=== PATIENT | male | born 1980 | race Caucasian/White ===

== ENCOUNTER 2017-05-27 12:00 | Emergency (ER) | payer BC ==
[~2017-05-27] VITALS: Ht 167.6 cm; Wt 88.0 kg
[~2017-05-27 12:00] MED LIST: Z.0.NO CURRENT MEDS
[2017-05-27 12:14] VITALS: BP 129/92; PULSE 88; RESP 17; TEMP 97.7; O2SAT 98
[2017-05-27] MEDS ORDERED: REME15TA PO (13:07)
--- NOTE | 2017-05-27 13:29 | PD ---
HPI Chief Complaint: Musculoskeletal Complaint Time Seen by Provider: 13:18 Travel History International Travel<30 days: No Contact w/Intl Traveler<30days: No Traveled to known affect area: No History of Present Illness HPI 36-year-old male here for evaluation of left fifth finger pain 3-4 days. He denies injury. He is concerned it is trigger finger as one of his parents had similar symptoms. Symptoms severity is moderate. It is aggravated by flexion and extension of the finger and slightly relieved with rest. PFSH Past Medical History Medical History: Denies Significant Hx Diminished Hearing: No Tetanus Vaccination: < 5 Years Influenza Vaccination: No Past Surgical History Other Surgery: Yes (left foot) Social History Alcohol Use: Yes (denies) Tobacco Use: Yes (1PK PER DAY/SINCE AGE 14 states now occas. smoker) Substance Use: Yes Allergies-Medications (Allergen,Severity, Reaction): Coded Allergies: michele (Unverified Allergy, Intermediate, Anaphylaxis, 05/27/17) legumes (Verified Allergy, Intermediate, Anemia, 05/27/17) Reported Meds & Prescriptions Reported Meds & Active Scripts Active Reported Remeron (Mirtazapine) 15 Mg Tab 15 Mg PO HS Review of Systems Except as stated in HPI: all other systems reviewed are Neg Physical Exam Narrative GENERAL: Well-nourished, well-developed patient. SKIN: Focused skin assessment warm/dry. HEAD: Normocephalic. EYES: No scleral icterus. No injection or drainage. NECK: Supple, trachea midline. CARDIOVASCULAR: Regular rate and rhythm without murmurs, gallops, or rubs. RESPIRATORY: Breath sounds equal bilaterally. No accessory muscle use. MUSCULOSKELETAL: No cyanosis, or edema. Left hand: Tenderness to the entire portion of the fifth digit. No swelling, erythema, abrasions/wounds noted. Brisk cap refill. The finger is held in slight flexion. Reported normal sensation. Data Data Last Documented VS Vital Signs Date Time Temp Pulse Resp B/P (MAP) Pulse Ox O2 Delivery O2 Flow Rate FiO2 05/27/17 13:03 16 05/27/17 12:14 97.7 88 129/92 (104) 98 Orders Orders Splint Or Brace Apply/Monitor (05/27/17 13:23) Finger Splint (05/27/17 ) MDM Medical Decision Making Medical Screen Exam Complete: Yes Emergency Medical Condition: Yes Differential Diagnosis Finger sprain/strain, tendinitis, trigger finger, likely ruled out tenosynovitis Narrative Course 36-year-old male here for evaluation of left fifth finger pain and he denies injury. 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 On exam he has pain with full extension of the left fifth digit. There is no evidence of infection, dislocation, fracture. Patient will be finger splinted and instructed to follow -up with the hand surgeon appointment which he already reschedule. Diagnosis Primary Impression: Finger pain Qualified Codes: M79.645 - Pain in left finger(s) Referrals: Hand Surgeon Departure Forms: Tests/Procedures, Work Release Special Instructions: allow use of finger splint until follow up with hand surgeon Additional Instructions: Take [id number] Motrin 600 800 mg every 6-8 hours as needed for pain. Use the finger splint as directed. Keep your appointment with the hand surgeon this week. Disposition: 01 DISCHARGE HOME Condition: Stable Blanquita Gallego May 27, 2017 13:29
[2017-05-27] MEDS ORDERED: PERC5TAB12 PO (22:44)
== END 2017-05-27 13:48 | disposition home or self-care (01) ==
LOC: PHED 12:00 → PHEFT 13:48
DX: M79.645 Pain in left finger(s) (principal); Z72.0 Tobacco use; M79.642 Pain in left hand; S69.92XD Unspecified injury of left wrist, hand and finger(s), subsequent encounter; X58.XXXD Exposure to other specified factors, subsequent encounter
CPT/HCPCS: 29130

== ENCOUNTER 2017-05-27 20:46 | Emergency (ER) | payer BC ==
[~2017-05-27] VITALS: Ht 167.6 cm; Wt 86.6 kg
[~2017-05-27 20:46] MED LIST changes: +REME15TA PO
[2017-05-27 20:56] VITALS: BP 130/80; PULSE 100; RESP 18; TEMP 97.9; O2SAT 97
--- NOTE | 2017-05-27 21:29 | PD ---
HPI Chief Complaint: Pain: Acute or Chronic Time Seen by Provider: 21:19 Travel History International Travel<30 days: No Contact w/Intl Traveler<30days: No Traveled to known affect area: No History of Present Illness HPI This patient complains of pain in the left hand. Pain is severe. Started this weekend a day that he was hard labor with his hands. He wrapped his hands around metal wendy and was jamming in the ground repeatedly. Later that evening he had pain in the lateral aspect of the left hand. Duration is 4 days. Seen earlier today and the splint was applied. He took the splint off because it was hurting him and came back. No fever. No drainage no redness or warmth. He cannot fully flex or extend his left fifth finger. Movement of that finger causes him to shriek in pain. Pain is exacerbated with movement of the left fifth finger. No alleviating factors. PFSH Past Medical History Diminished Hearing: No Past Surgical History Other Surgery: Yes (left foot) Social History Alcohol Use: Yes (denies) Tobacco Use: Yes (1PK PER DAY/SINCE AGE 14 states now occas. smoker) Substance Use: Yes Allergies-Medications (Allergen,Severity, Reaction): Coded Allergies: michele (Unverified Allergy, Intermediate, Anaphylaxis, 05/27/17) legumes (Verified Allergy, Intermediate, Anemia, 05/27/17) Reported Meds & Prescriptions Reported Meds & Active Scripts Active Reported Remeron (Mirtazapine) 15 Mg Tab 15 Mg PO HS Review of Systems General / Constitutional: No: Fever Eyes: No: Visual changes HENT: No: Headaches Cardiovascular: No: Chest Pain or Discomfort Respiratory: No: Shortness of Breath Gastrointestinal: No: Abdominal Pain Genitourinary: No: Dysuria Musculoskeletal: Positive: Pain Skin: No Rash Neurologic: No: Weakness Psychiatric: No: Depression Endocrine: No: Polydipsia Hematologic/Lymphatic: No: Easy Bruising Physical Exam Narrative GENERAL: Well-nourished, well-developed patient with left hand pain . SKIN: Focused skin assessment reveals no rash and nodules. Skin is Warm and dry. HEAD: Atraumatic. Normocephalic. EYES: Pupils equal and round. No scleral icterus. No injection or drainage. ENT: No nasal bleeding or discharge. Mucous membranes pink and moist. NECK: Trachea midline. No JVD. CARDIOVASCULAR: Regular rate and rhythm. No murmur appreciated. RESPIRATORY: No accessory muscle use. Clear to auscultation. Breath sounds equal bilaterally. GASTROINTESTINAL: Abdomen soft, non-tender, nondistended. Hepatic and splenic margins not palpable. MUSCULOSKELETAL: Examination left hand reveals good flexion-extension of digits 1,2, and 3. There is some pain with flexion and extension of digits 4. If I move digit 5 he screams out in pain. There is some swelling and tenderness at the fifth metacarpal head . It's not warm or erythematous. No fluctuance or drainage. No clubbing. No cyanosis. No edema. NEUROLOGICAL: Awake and alert. No obvious cranial nerve deficits. Motor grossly within normal limits. Normal speech. PSYCHIATRIC: Appropriate mood and affect; insight and judgment normal. Data Data Last Documented VS Vital Signs Date Time Temp Pulse Resp B/P (MAP) Pulse Ox O2 Delivery O2 Flow Rate FiO2 05/27/17 20:56 97.9 100 18 130/80 (97) 97 Orders Orders Iv Access Insert/Monitor (05/27/17 21:19) Complete Blood Count With Diff (05/27/17 21:19) Basic Metabolic Panel (Bmp) (05/27/17 21:19) Prothrombin Time / Inr (Pt) (05/27/17 21:19) Act Partial Throm Time (Ptt) (05/27/17 21:19) Hand, Limited (2vws) (05/27/17 ) Ondansetron Inj (Zofran Inj) (05/27/17 21:30) Hydromorphone Pf Inj (Dilaudid Pf Inj) (05/27/17 21:45) Splint Or Brace Apply/Monitor (05/27/17 22:43) Labs Laboratory Tests Test 05/27/17 21:43 White Blood Count 8.9 TH/MM3 Red Blood Count 5.04 MIL/MM3 Hemoglobin 15.0 GM/DL Hematocrit 44.0 % Mean Corpuscular Volume 87.3 FL Mean Corpuscular Hemoglobin 29.8 PG Mean Corpuscular Hemoglobin Concent 34.2 % Red Cell Distribution Width 12.5 % Platelet Count 171 TH/MM3 Mean Platelet Volume 9.3 FL Neutrophils (%) (Auto) 71.9 % Lymphocytes (%) (Auto) 17.1 % Monocytes (%) (Auto) 7.2 % Eosinophils (%) (Auto) 2.9 % Basophils (%) (Auto) 0.9 % Neutrophils # (Auto) 6.4 TH/MM3 Lymphocytes # (Auto) 1.5 TH/MM3 Monocytes # (Auto) 0.6 TH/MM3 Eosinophils # (Auto) 0.3 TH/MM3 Basophils # (Auto) 0.1 TH/MM3 CBC Comment DIFF FINAL Differential Comment Prothrombin Time 10.1 SEC Prothromb Time International Ratio 0.9 RATIO Activated Partial Thromboplast Time 28.2 SEC Blood Urea Nitrogen 15 MG/DL Creatinine 0.98 MG/DL Random Glucose 120 MG/DL Calcium Level 8.3 MG/DL Sodium Level 138 MEQ/L Potassium Level 4.1 MEQ/L Chloride Level 104 MEQ/L Carbon Dioxide Level 27.0 MEQ/L Anion Gap 7 MEQ/L Estimat Glomerular Filtration Rate 88 ML/MIN MDM Medical Decision Making Medical Screen Exam Complete: Yes Emergency Medical Condition: Yes Medical Record Reviewed: Yes Differential Diagnosis Tendon rupture, tendinitis, tenosynovitis Narrative Course I have reviewed the patient's electronic medical record. Reviewed his visit from earlier today IV placed CBC is normal Metabolic profile is normal Coagulation studies are normal I reviewed his left hand x-rays which are normal I gave him a dose of IV pain and nausea medicine for symptom relief Review the case in detail with hand surgeon Dr. Sood. Patient has an appointment with her group Wednesday. She recommended ice and elevation and alert a gutter splint in a position of comfort. I wrote him pain medication. This does not look infectious to examine. She recommends calling the [facility] office tomorrow morning to see if Dr. Galaviz will fit him in Diagnosis Primary Impression: Left hand pain Additional Impression: Soft tissue injury of hand Qualified Codes: S69.92XD - Unspecified injury of left wrist, hand and finger( s), subsequent encounter Additional Instructions: The patient was warned about potential sedation for the medications they will receive on prescription. Follow-up with hand surgery Ice and elevate Wear splint if tolerated Med/Other Pt SpecificInfo: Prescription(s) given Scripts Oxycodone-Acetaminophen (Percocet) 5-325 mg Tab 1 TAB PO Q6H Y for PAIN, #25 TAB 0 Refills Prov: Salvador Boogie MD 05/27/17 Disposition: 01 DISCHARGE HOME Condition: Stable Keiko Boogieew J. MD May 27, 2017 21:29
[2017-05-27] MEDS ORDERED: ONDANSETRON HCL 4 MG/2 ML VIAL IVP ONE (21:30)
[2017-05-27] MEDS ORDERED: HYDROmorphone HCL PF 1 MG/ML VIAL IVS ONE (21:30)
[2017-05-27] MEDS ORDERED: HYDROmorphone HCL PF 0.5 MG/0.5 ML SYRINGE IV PUSH ONE (21:45)
[2017-05-27 21:59] LABS: AUTOMATED NEUTROPHIL # 6.4 TH/MM3 (1.8-7.7); BASOPHIL # 0.1 TH/MM3 (0-0.2); BASOPHIL % 0.9 % (0.0-2.0); EOSINOPHIL # 0.3 TH/MM3 (0-0.4); EOSINOPHIL % 2.9 % (0.0-4.0); HEMO FLAGS DIFF FINAL; LYMPH % 17.1 % (9.0-44.0); LYMPHOCYTE # 1.5 TH/MM3 (1.0-4.8); MEAN CELL VOLUME 87.3 FL (80.0-100.0); MEAN CORPUSCULAR HEMOGLOBIN 29.8 PG (27.0-34.0); MEAN CORPUSCULAR HGB CONC 34.2 % (32.0-36.0); MONO % 7.2 % (0.0-8.0); NEUT % 71.9 % (16.0-70.0); PLATELET COUNT 171 TH/MM3 (150-450); RED BLOOD COUNT 5.04 MIL/MM3 (4.50-5.90); RED CELL DISTRIBUTION WIDTH 12.5 % (11.6-17.2); WHITE BLOOD COUNT 8.9 TH/MM3 (4.0-11.0)
[2017-05-27 22:07] LABS: POTASSIUM 4.1 MEQ/L (3.5-5.1)
[2017-05-27 22:12] LABS: APTT (PATIENT) 28.2 SEC (24.3-30.1); INTERNATIONAL NORMALIZED RATIO 0.9 RATIO; PROTHROMBIN TIME - PATIENT 10.1 SEC (9.8-11.6)
--- NOTE | 2017-05-27 22:20 | RADRPT ---
EXAM DATE/TIME: 05/27/2017 21:35 [facility] COMPARISON: No previous studies available for comparison. INDICATIONS : Left hand pain; radiating pain from 5th digit to wrist. No known injury. MEDICAL HISTORY : None. SURGICAL HISTORY : None. ENCOUNTER: Initial ACUITY: 2 days PAIN SCORE: 10/10 LOCATION: Left medial hand. FINDINGS: Two view examination of the left hand demonstrates no soft tissue swelling, dislocation, or fracture. The joint spaces are maintained. Bony mineralization is normal. CONCLUSION: Unremarkable limited examination of the left hand. Frank Alvarado MD on May 27, 2017 at 22:17 Board Certified Radiologist. This report was verified electronically.
[2017-05-27] MEDS ORDERED: PERC5TAB12 PO (22:44)
== END 2017-05-27 22:55 | disposition home or self-care (01) ==
LOC: PHEFT 20:46
DX: M79.642 Pain in left hand (principal); S69.92XD Unspecified injury of left wrist, hand and finger(s), subsequent encounter; Z72.0 Tobacco use; X58.XXXD Exposure to other specified factors, subsequent encounter
CPT/HCPCS: 29125; 73120; 80048; 85025; 85610; 85730; 96374; 96375; 99284; J1170; J2405

== ENCOUNTER 2017-06-28 07:53 | Emergency (ER) | payer BC ==
[~2017-06-28] VITALS: Ht 167.6 cm; Wt 86.0 kg
[~2017-06-28 07:53] MED LIST changes: +PERC5TAB12 PO; -Z.0.NO CURRENT MEDS
[2017-06-28 07:57] VITALS: BP 134/83; PULSE 116; RESP 16; TEMP 99.6; O2SAT 98
[2017-06-28 08:53] LABS: AUTOMATED NEUTROPHIL # 3.9 TH/MM3 (1.8-7.7); BASOPHIL % 0.6 % (0.0-2.0); EOSINOPHIL # 0.1 TH/MM3 (0-0.4); EOSINOPHIL % 1.8 % (0.0-4.0); HEMATOCRIT 45.4 % (39.0-51.0); LYMPH % 9.7 % (9.0-44.0); LYMPHOCYTE # 0.5 TH/MM3 (1.0-4.8); MEAN CELL VOLUME 86.2 FL (80.0-100.0); MEAN CORPUSCULAR HEMOGLOBIN 28.5 PG (27.0-34.0); MEAN CORPUSCULAR HGB CONC 33.1 % (32.0-36.0); MONO % 14.8 % (0.0-8.0); MONOCYTE # 0.8 TH/MM3 (0-0.9); NEUT % 73.1 % (16.0-70.0); PLATELET COUNT 115 TH/MM3 (150-450); RED BLOOD COUNT 5.26 MIL/MM3 (4.50-5.90); RED CELL DISTRIBUTION WIDTH 11.9 % (11.6-17.2); WHITE BLOOD COUNT 5.3 TH/MM3 (4.0-11.0)
[2017-06-28 08:55] LABS: BILIRUBIN, URINE NEG (NEG); BLOOD, URINE SMALL (NEG); GLUCOSE,URINE NEG (NEG); KETONE, URINE NEG (NEG); NITRITE,URINE NEG (NEG); URINE LEUKOCYTE ESTERASE NEG (NEG)
[2017-06-28 09:05] LABS: BICARBONATE 27.1 MEQ/L (21.0-32.0); CALCIUM 8.6 MG/DL (8.5-10.1)
[2017-06-28 09:05] LABS: URINE COLOR YELLOW (YELLW/STRAW); WBC, URINE 0-2 /hpf (0-5)
[2017-06-28 09:06] LABS: SQUAMOUS EPITHELIAL CELL URINE 0-1 /hpf (0-5)
[2017-06-28 09:09] LABS: CREATININE 0.92 MG/DL (0.60-1.30)
[2017-06-28 09:13] VITALS: BP 106/76; PULSE 89; RESP 18; O2SAT 96
[2017-06-28] MEDS ORDERED: ACETAMINOPHEN 500 MG CPLT PO ONE (09:15)
[2017-06-28] MEDS ORDERED: NAPR500T2 PO (09:23)
--- NOTE | 2017-06-28 09:23 | PD ---
HPI Chief Complaint: Cold / Flu Symptoms Time Seen by Provider: 08:15 Travel History International Travel<30 days: No Contact w/Intl Traveler<30days: No Traveled to known affect area: No History of Present Illness HPI This is a 36-year-old male who presents to the emergency department with 4 days of fevers, chills, bodyaches, and some back pain, constant, moderate severity, worse with standing. Today he developed a rash all over his body, worse on his back, not itchy but somewhat painful that started when he woke up this morning. He's never had a rash like this before. He says that as a child he received all of his vaccines. He has not traveled anywhere recently. He has no known sick contacts. PFSH Past Medical History Diminished Hearing: No Influenza Vaccination: No Past Surgical History Other Surgery: Yes (left foot) Social History Alcohol Use: No Tobacco Use: Yes (1PK PER DAY/SINCE AGE 14 states now occas. smoker) Substance Use: Yes Allergies-Medications (Allergen,Severity, Reaction): Coded Allergies: michele (Unverified Allergy, Intermediate, Anaphylaxis, 05/27/17) legumes (Verified Allergy, Intermediate, Anemia, 05/27/17) Reported Meds & Prescriptions Reported Meds & Active Scripts Active Reported Remeron (Mirtazapine) 15 Mg Tab 15 Mg PO HS Review of Systems Except as stated in HPI: all other systems reviewed are Neg Physical Exam Narrative GENERAL:Well appearing, no acute distress SKIN: Diffuse maculopapular rash over the arms chest, and lower back, blanching. HEAD: Atraumatic. Normocephalic. EYES: Pupils equal and round. No injection or drainage. ENT: Moist mucous membranes NECK: Trachea midline. CARDIOVASCULAR: Regular rate and rhythm. No murmur appreciated. RESPIRATORY: Clear to auscultation. Breath sounds equal bilaterally. GASTROINTESTINAL: Abdomen soft, non-tender, nondistended. MUSCULOSKELETAL: No obvious deformities. NEUROLOGICAL: Awake and alert. No obvious cranial nerve deficits. Moving all extremities. PSYCHIATRIC: Appropriate mood and affect; insight and judgment normal. Data Data Last Documented VS Vital Signs Date Time Temp Pulse Resp B/P (MAP) Pulse Ox O2 Delivery O2 Flow Rate FiO2 06/28/17 09:13 89 18 106/76 (86) 96 Room Air 06/28/17 07:57 99.6 Orders Orders Complete Blood Count With Diff (06/28/17 08:29) Basic Metabolic Panel (Bmp) (06/28/17 08:29) Urinalysis - C+S If Indicated (06/28/17 08:29) Acetaminophen (Tylenol) (06/28/17 09:15) Labs Laboratory Tests Test 06/28/17 08:40 06/28/17 08:45 White Blood Count 5.3 TH/MM3 Red Blood Count 5.26 MIL/MM3 Hemoglobin 15.0 GM/DL Hematocrit 45.4 % Mean Corpuscular Volume 86.2 FL Mean Corpuscular Hemoglobin 28.5 PG Mean Corpuscular Hemoglobin Concent 33.1 % Red Cell Distribution Width 11.9 % Platelet Count 115 TH/MM3 Mean Platelet Volume 9.0 FL Neutrophils (%) (Auto) 73.1 % Lymphocytes (%) (Auto) 9.7 % Monocytes (%) (Auto) 14.8 % Eosinophils (%) (Auto) 1.8 % Basophils (%) (Auto) 0.6 % Neutrophils # (Auto) 3.9 TH/MM3 Lymphocytes # (Auto) 0.5 TH/MM3 Monocytes # (Auto) 0.8 TH/MM3 Eosinophils # (Auto) 0.1 TH/MM3 Basophils # (Auto) 0.0 TH/MM3 CBC Comment DIFF FINAL Differential Comment Blood Urea Nitrogen 9 MG/DL Creatinine 0.92 MG/DL Random Glucose 107 MG/DL Calcium Level 8.6 MG/DL Sodium Level 135 MEQ/L Potassium Level 4.2 MEQ/L Chloride Level 101 MEQ/L Carbon Dioxide Level 27.1 MEQ/L Anion Gap 7 MEQ/L Estimat Glomerular Filtration Rate 94 ML/MIN Urine Collection Type CLEAN CATCH Urine Color YELLOW Urine Turbidity CLEAR Urine pH 6.0 Urine Specific [place] 1.022 Urine Protein NEG mg/dL Urine Glucose (UA) NEG mg/dL Urine Ketones NEG mg/dL Urine Occult Blood SMALL Urine Nitrite NEG Urine Bilirubin NEG Urine Leukocyte Esterase NEG Urine WBC 0-2 /hpf Urine Squamous Epithelial Cells 0-1 /hpf Microscopic Urinalysis Comment CULT NOT INDICATED MDM Medical Decision Making Medical Screen Exam Complete: Yes Emergency Medical Condition: Yes Interpretation(s) temperature 99.6, tachycardic, normotensive No leukocytosis Mild thrombocytopenia 14% monocytes Mild hyponatremia Creatinines normal Urinalysis is negative for infection Differential Diagnosis Viral syndrome, electrolyte abnormality, renal failure, urinary tract infection , pyelonephritis Narrative Course This is a 36-year-old male who presents to the emergency department with flulike symptoms and a rash that started today. The rash is nonspecific. He is reporting some bilateral flank pain. Labs are obtained which demonstrate a normal creatinine and normal urinalysis. I suspect the patient has a viral syndrome which is supported by his monocyte predominance. Patient will be treated symptomatically and was asked to follow-up with his primary care physician as needed. Diagnosis Primary Impression: Viral syndrome Patient Instructions: General Instructions Additional Instructions: If you develop severe chest pain, shortness of breath, sweating, lightheadedness , dizziness or difficulty breathing return to the emergency department immediately. Followup with your primary care physician in 2-3 days if your symptoms are not resolved. Med/Other Pt SpecificInfo: Prescription(s) given Scripts Naproxen (Naproxen) 500 Mg Tab 500 MG PO BID Y for PAIN SCALE 4 TO 10, #20 TAB 0 Refills Prov: Vivian Acuña MD 06/28/17 Disposition: 01 DISCHARGE HOME Condition: Stable Vivian Acuña MD Jun 28, 2017 09:23
[2017-06-28] MEDS: NAPROXEN 500 MG TAB PO ONE ×2 (09:30→09:34)
== END 2017-06-28 09:45 | disposition home or self-care (01) ==
LOC: PHED 07:53
DX: B34.9 Viral infection, unspecified (principal); R21 Rash and other nonspecific skin eruption; Z72.0 Tobacco use
CPT/HCPCS: 80048; 81001; 85025; 99283